=== PATIENT | female | born 1945 | race Caucasian/White ===

== ENCOUNTER 2019-10-02 11:00 | Day surgery (SDC) | payer MEDICARE, OTHER ==
[~2019-10-02] VITALS: Ht 172.7 cm; Wt 88.0 kg
[2019-10-02 11:27] VITALS: BP 132/81
[2019-10-02] MEDS ORDERED: LACTATED RINGERS 1,000 ML IV ONE ×2 (11:36→18:00)
[2019-10-02] MEDS ORDERED: MIDAZOLAM 1 MG/ML, 2ML ONE (11:39)
[2019-10-02] MEDS ORDERED: FENTANYL PF 250 MCG/5ML ONE (11:39)
[2019-10-02] MEDS ORDERED: GABA300C10 PO (11:48)
[2019-10-02] MEDS ORDERED: HYDR50CA2 PO (11:48)
[2019-10-02] MEDS ORDERED: OXYC-306 PO (11:48)
[2019-10-02] MEDS ORDERED: DESL5TAB PO (11:48)
[2019-10-02] MEDS ORDERED: MONT10TA11 PO (11:48)
[2019-10-02] MEDS ORDERED: DULO60CA7 PO (11:48)
[2019-10-02] MEDS ORDERED: SIMV40TA20 PO (11:48)
[2019-10-02] MEDS ORDERED: FLUT1DIS5 IH (11:48)
[2019-10-02] MEDS ORDERED: ALLO300T PO (11:48)
[2019-10-02] MEDS ORDERED: biotin (11:48)
[2019-10-02] MEDS ORDERED: ventolin inh (11:48)
[2019-10-02] MEDS ORDERED: AMOX-291 PO (11:48)
[2019-10-02] MEDS ORDERED: TELM80TA PO (11:48)
[2019-10-02] MEDS ORDERED: CLOP75TA PO (11:48)
[2019-10-02] MEDS ORDERED: IPRA3AMP30 INH (11:48)
[2019-10-02] MEDS ORDERED: MULT-717 PO (11:48)
[2019-10-02] MEDS ORDERED: GABAPENTIN 300 MG CAPSULE PO ONE (12:30)
[2019-10-02] MEDS ORDERED: FAMOTIDINE 20 MG TABLET PO ONE (12:30)
[2019-10-02] MEDS ORDERED: OxyconTIN ER 20 MG TAB.ER PO ONE (12:30)
[2019-10-02] MEDS ORDERED: ACETAMINOPHEN 500 MG TABLET PO ONE (12:30)
[2019-10-02 13:00] LABS: ALANINE AMINOTRANSFERASE 23 U/L (12-78); ALBUMIN 4.4 g/dL (3.4-5.0); ANION GAP 10 mmol/L (5-15); CALCIUM 9.1 mg/dL (8.5-10.1); CHLORIDE 109 mmol/L (98-107); CREATININE 0.88 mg/dL (0.55-1.02)
[2019-10-02 13:03] LABS: ALKALINE PHOSPHATASE 121 U/L (45-117); TOTAL PROTEIN 8.2 g/dL (6.4-8.2)
[2019-10-02] MEDS ORDERED: BUPIVACAINE/PF 0.5% ONE (13:11)
[2019-10-02] MEDS ORDERED: LIDOCAINE 1%, 20ML ONE (13:11)
[2019-10-02] MEDS ORDERED: DEXAMETHASONE 4 MG/ML, 1ML ONE ×2 (14:13)
[2019-10-02] MEDS ORDERED: CEFAZOLIN 1,000 MG ONE ×2 (14:19)
[2019-10-02] MEDS ORDERED: MEPERIDINE/PF 25MG/ML,1ML IVPush PRN (15:00)
[2019-10-02] MEDS ORDERED: ONDANSETRON 2MG/ML, 2ML IV PRN (15:00)
[2019-10-02] MEDS ORDERED: hydrALAzine 20 MG/ML, 1ML IV PRN (15:00)
[2019-10-02] MEDS ORDERED: PROMETHAZINE 25 MG/ML, 1ML IV PRN (15:00)
[2019-10-02] MEDS ORDERED: MIDAZOLAM 1 MG/ML, 2ML IV PRN (15:00)
[2019-10-02] MEDS ORDERED: LABETALOL 5MG/ML, 20ML IV PRN (15:00)
[2019-10-02] MEDS ORDERED: OXYcodone 5 MG/5 ML ORAL.SOL UDC PO PRN (15:00)
[2019-10-02] MEDS ORDERED: ROCURONIUM 10MG/ML,5ML ONE (15:16)
[2019-10-02] MEDS ORDERED: PROPOFOL 10 MG/ML, 20ML ONE (15:16)
[2019-10-02] MEDS ORDERED: ONDANSETRON 2MG/ML, 2ML ONE (15:17)
[2019-10-02] MEDS ORDERED: OXYcodone 5 MG/5 ML ORAL.SOL UDC ONE (15:52)
[2019-10-02] MEDS ORDERED: FENTANYL PF 100 MCG/2ML ONE (15:52)
[2019-10-02] MEDS: FENTANYL PF 100 MCG/2ML IV PRN ×2 (15:55→16:07)
[2019-10-02] MEDS ORDERED: HYDROmorphone 1 MG/ML, 1ML INJ ONE ×2 (16:00→16:29)
[2019-10-02] MEDS: HYDROmorphone 1 MG/ML, 1ML INJ IVPush PRN ×3 (16:03→16:16)
[2019-10-02] MEDS ORDERED: PERCOCET 7.5MG MC SCH (18:00)
[2019-10-02] MEDS ORDERED: VENTOLIN MC SCH (18:00)
[2019-10-02] MEDS ORDERED: COMBIVENT MC SCH (18:00)
[2019-10-02] MEDS ORDERED: ALBUTEROL SULFATE 2.5 MG/3 ML HHN SCH (18:30)
[2019-10-02] MEDS ORDERED: GABAPENTIN 400 MG CAPSULE PO SCH (21:00)
[2019-10-02] MEDS ORDERED: SIMVASTATIN 40 MG TABLET PO SCH (21:00)
[2019-10-02] MEDS ORDERED: BUDESONIDE 0.5 MG/2 ML INHA HHN SCH (21:00)
[2019-10-02] MEDS ORDERED: ADVAIR INH SCH (21:00)
[2019-10-02] MEDS ORDERED: HYDROXYZINE PAMOATE 50MG CAP PO SCH (21:00)
[2019-10-02] MEDS ORDERED: MONTELUKAST 10 MG TABLET PO SCH (21:00)
[2019-10-03] MEDS ORDERED: ALLOPURINOL 300 MG TABLET PO SCH (09:00)
[2019-10-03] MEDS ORDERED: MULTIVITAMIN 1 TABLET PO SCH (09:00)
[2019-10-03] MEDS ORDERED: LOSARTAN 100 MG TAB PO SCH (09:00)
[2019-10-03] MEDS ORDERED: MICARDIS 80 MG PO SCH (09:00)
[2019-10-03] MEDS ORDERED: LORATADINE 10 MG TABLET PO SCH (09:00)
[2019-10-03] MEDS ORDERED: DULOXETINE 30 MG CAPSULE.DR PO SCH (09:00)
[2019-10-03] MEDS ORDERED: CLOPIDOGREL 75 MG TABLET PO SCH (09:00)
== END 2019-10-02 19:30 | disposition home or self-care (01) ==
LOC: OUT 11:00 → 4NE 17:26 → OUT 19:30
PROVIDERS: ATTEND Orthopaedic Surgery
DX: M67.01 Short Achilles tendon (acquired), right ankle (principal); L97.419 Non-pressure chronic ulcer of right heel and midfoot with unspecified severity; G47.33 Obstructive sleep apnea (adult) (pediatric); I10 Essential (primary) hypertension; J45.909 Unspecified asthma, uncomplicated; M19.90 Unspecified osteoarthritis, unspecified site; Z79.891 Long term (current) use of opiate analgesic; Z79.02 Long term (current) use of antithrombotics/antiplatelets; Z79.899 Other long term (current) drug therapy; Z88.1 Allergy status to other antibiotic agents; Z88.2 Allergy status to sulfonamides; Z88.8 Allergy status to other drugs, medicaments and biological substances; Z91.018 Allergy to other foods; Z90.49 Acquired absence of other specified parts of digestive tract; Z96.651 Presence of right artificial knee joint; Z98.890 Other specified postprocedural states; Z82.3 Family history of stroke; Z82.49 Family history of ischemic heart disease and other diseases of the circulatory system
CPT/HCPCS: 20240; 27685; 27691; 36415; 80053; 87070; 87075; 87176; 87205; 88305; 88311; C1713; J0690; J1100; J1170; J2250; J2405; J2704; J3010; J7120; G0378